=== PATIENT | female | born 1970 | race Caucasian/White ===

== ENCOUNTER 2017-02-16 20:09 | Emergency (ER) | payer OTHER ==
[~2017-02-16] VITALS: Ht 157.5 cm; Wt 99.5 kg
[~2017-02-16 20:09] MED LIST: BENA10TA48; GLIP-95 PO; MECL25TA2 PO; METF1000 PO; MEVA40 PO; ONDA4TAB8 PO; OXYC-281 PO; TRAM50TA2 PO
[2017-02-16 20:12] VITALS: Ht 157.5 cm; Wt 99.5 kg
[2017-02-16] MEDS ORDERED: LIDOCAINE 1% (MDV) 20 ML INJ SC STA (21:37)
[2017-02-16] MEDS ORDERED: CEPH-443 PO (21:41)
[2017-02-16] MEDS ORDERED: SULF1TAB31 PO (21:41)
[2017-02-16] MEDS ORDERED: BACITUD TOP (22:21)
--- NOTE | 2017-02-16 22:43 | ERD ---
ER Documentation Chief Complaint Date/Time DATE: 02/16/17 TIME: 22:35 Chief Complaint foreign body right middle finger HPI 46 year old female with history of diabetes type 2 presents to the emergency department complaining of a skin lesion on on the volar aspect of the right middle finger for the past 2 weeks. Patient states that it is painful rating it mild to moderate in severity. She states that it has been bleeding when she has touched it a few times in the past couple weeks. She denies any fevers. Denies any trauma ROS All systems reviewed and are negative except as per history of present illness. Medications Home Meds Active Scripts Bacitracin* (Bacitracin Oint (UD)*) 1 Applic Oint, 1 APPLIC TOP BID for 5 Days, PKT APPLY TO Prov:GLORY CONTE PA-C 02/16/17 Ondansetron Hcl* (Zofran*) 4 Mg Tablet, 4 MG PO BID for 15 Days, #30 TAB 0 Refills Prov:UVALDO THOMPSON PA-C 05/24/16 Meclizine Hcl* (Antivert*) 25 Mg Tablet, 25 MG PO Q6H Y for DIZZINESS for 5 Days , #20 TAB 0 Refills Prov:UVALDO THOMPSON PA-C 05/24/16 Tramadol HCl (Tramadol HCl) 50 Mg Tablet, 50 MG PO Q4 Y for PAIN, #20 TAB Prov:ROXANE BURTON PA-C 01/15/16 Oxycodone Hcl-Acetaminophen* (Percocet*) 5-325 Mg Tablet, 1 TAB PO Q4H Y for PAIN AND/OR INFLAMMATION, #14 TAB Prov:KAJAL REYNOLDS MD 06/11/15 Reported Medications Metformin Hcl* (Metformin Hcl*) 1,000 Mg Tablet, 1000 MG PO BID, TAB 06/11/15 Glipizide* (Glipizide*) 10 Mg Tablet, 10 MG PO AC BREAKFAST, TAB 06/11/15 Lovastatin (Lovastatin) 40 Mg Tablet, 40 MG PO HS, TAB 09/30/14 Benazepril Hcl* (Benazepril Hcl*) 10 Mg Tablet, DAILY 02/25/12 Allergies Allergies: Coded Allergies: No Known Allergies (Verified Allergy, Unknown, 01/15/16) PMhx/Soc History of Surgery: Yes (TUBAL LIGATION ) Anesthesia Reaction: No Hx Neurological Disorder: No Hx Respiratory Disorders: No Hx Cardiac Disorders: No Hx Psychiatric Problems: No Hx Miscellaneous Medical Probl: Yes (DM ) Hx Alcohol Use: No Hx Substance Use: No Hx Tobacco Use: No (2-3 CIGS /DAY ) Smoking Status: Former smoker Physical Exam Vitals Vital Signs Date Time Temp Pulse Resp B/P Pulse Ox O2 Delivery O2 Flow Rate FiO2 02/16/17 20:12 97.8 90 20 163/90 97 Physical Exam General: WD/WN, in no apparent distress, non-toxic appearing HENT: NC/AT Eyes: Conjunctiva normal Neck: Supple Pulm: Clear to auscultation, normal labored breathing; no wheezing/rales/ rhonchi heard CV: Good capillary refill GI: Non-distended, no guarding Back: No masses Ext: No clubbing, cyanosis, or edema Neuro: Moves on all fours Skin: 0.5cmXx0.5cm skin lesion on volar aspect of middle finger Psych: Normal mood Results 24 hrs Current Medications Medications (Trade) Dose Ordered Sig/Tiny Route PRN Reason Start Time Stop Time Status Last Admin Dose Admin Lidocaine (Xylocaine 1% (Mdv) 20 ml) 20 ml ONCE STAT SC 02/16/17 21:37 02/16/17 21:41 DC Procedures/MDM 46 year old female with history of diabetes type 2 presents to the emergency department complaining of a skin lesion on on the volar aspect of the right middle finger for the past 2 weeks, which is likely a wart that has been irritated. In the ED, cleansed the right middle finger with Betadine and did a digital block with 4cc of lido 1% without epi to anesthetize the area. Using forceps I have removed the black scab, there is no evidence of any foreign body or purulence after debriding the region. I have applied Neosporin. I have discussed the patient that she is suitable for discharge to follow-up with [facility] cr[facility] operator outpatient. Discussed return to the ER for any worsening symptoms. Patient stable for discharge her home and she understands and agrees with this plan Departure Diagnosis: Primary Impression: Skin lesion Condition: Fair Patient Instructions: What Are Warts? Additional Instructions: FOLLOW UP WITH YOUR PRIMARY CARE PHYSICIAN TOMORROW.Return to this facility if you are not improving as expected. Take all medicines as directed. Return to this facility if you are not improving as expected. GLORY CONTE PA-C February 16, 2017 22:43
== END 2017-02-16 22:50 | disposition home or self-care (01) ==
LOC: FTE 20:09
DX: L98.9 Disorder of the skin and subcutaneous tissue, unspecified (principal); E11.9 Type 2 diabetes mellitus without complications; Z79.84 Long term (current) use of oral hypoglycemic drugs; Z87.891 Personal history of nicotine dependence
CPT/HCPCS: 99283